=== PATIENT | female | born 1995 | race Caucasian/White ===

== ENCOUNTER → 2022-03-10 10:46 | Outpatient (CLI) | payer BC, SELFPAY ==
--- NOTE | ~2022-03-10 | MR_ITS ---
EXAMINATION: MR brain/brain stem wo/w con DATE: 03/10/2022 17:32 CDT INDICATION: Complicated migraine headaches. TECHNIQUE: Magnetic resonance imaging (MRI) of the brain and brainstem was performed without and with 12 cc MultiHance intravenous contrast. Sequences included sagittal and axial T1-weighted SE, axial d iffusion-weighted FS SE, axial T2*-weighted GRE, axial T2-weighted FLAIR Propeller, and axial T2-weig hted Propeller. Apparent diffusion coefficient (ADC) maps were created. COMPARISON: No prior studies for comparison. FINDINGS: The brain volume and ventricular system are within normal limits. The brain parenchymal si gnal intensity pattern and thao/white matter is normal and there is no evidence of hemorrhage, space occupying masses or infarctions. The flow signal voids of the major arterial structures about the [place] and within the jenifer r dural venous sinuses appear grossly unremarkable and patent. The seventh and eighth cranial nerve complexes are normal. The mid sagittal image demonstrates a normal craniovertebral junction and [place] us callosum. The paranasal sinuses are grossly unremarkable. No abnormal contrast enhancement was appreciated. IMPRESSION: 1: Normal MRI of the brain. Reviewed, dictated and finalized at location A. IMPRESSION: 1: Normal MRI of the brain.
[2022-03-10 11:08] LABS: Estimated Glomerular Filt Rate > 60
== END ==
PROVIDERS: PCP Physician Assistant; Visit Provider Physician Assistant
DX: G43.109 Migraine with aura, not intractable, without status migrainosus (principal)
CPT/HCPCS: 70553; A9577